=== PATIENT | male | born 1945 | race Caucasian/White ===

== ENCOUNTER 2017-09-16 13:49 | Emergency (ER) | payer OTHER ==
[~2017-09-16] VITALS: Ht 185.4 cm; Wt 95.3 kg
--- NOTE | 2017-09-16 13:55 | NUR ---
VICENTE FROM STREET WITH CC COUGH X 2 DAYS , ,AOX4 , NO ACUTE DISTRESS NOTED , DENIES ANY PAIN AND SOB AT THIS TIME , VSS, SPO2 OF 100% VIA RA , WILL CONTINUE TO MONITOR .
[2017-09-16] MEDS ORDERED: ALBUTEROL FS 2.5 MG/3 ML VIAL.NEB ONE ×2 (14:22→15:27)
[2017-09-16] MEDS ORDERED: IPRATROPIUM NEB FS 0.5 MG/2.5 ML AMPUL.NEB ONE (14:22)
[2017-09-16] MEDS ORDERED: ALBUTEROL FS 2.5 MG/3 ML VIAL.NEB NEB ONE (14:30)
[2017-09-16] MEDS ORDERED: IPRATROPIUM NEB FS 0.5 MG/2.5 ML AMPUL.NEB NEB ONE (14:30)
[2017-09-16 14:47] LABS: BASOPHILS % (AUTO) 0.3 % (0.0-2.0); HEMATOCRIT 46 % (39-51); HEMOGLOBIN 15.3 g/dL (13.5-17.5); LYMPHOCYTES # (AUTO) 1.1 /CMM (0.8-4.8); LYMPHOCYTES % (AUTO) 11.1 % (20.0-44.0); MEAN CORPUSCULAR HEMOGLOBIN 30 PG (26.0-33.0); MEAN CORPUSCULAR HGB CONC 33 g/dl (31.0-36.0); MEAN CORPUSCULAR VOLUME 89 fL (80-96); MONOCYTES # (AUTO) 0.6 /CMM (0.1-1.30); MONOCYTES % (AUTO) 5.8 % (2.0-12.0); NEUTROPHILS # (AUTO) 8.2 /CMM (1.8-8.9); NEUTROPHILS % (AUTO) 81.8 % (43.0-81.0); PLATELET COUNT (AUTO) 227 /CMM (150-450); RDW COEFFICIENT OF VARIATION 12.6 (11.5-15.0); RED BLOOD CELL COUNT(AUTO) 5.17 MIL/uL (4.5-6.0); WHITE BLOOD COUNT (AUTO) 10.1 K/uL (4.3-11.0)
[2017-09-16 14:51] LABS: CALCIUM, SERUM 9.3 mg/dL (8.5-10.1); CARBON DIOXIDE 29 mmol/L (21-32); CHLORIDE 99 mmol/L (98-107); GLUCOSE 125 mg/dL (74-106); POTASSIUM 3.9 mmol/L (3.5-5.1); SODIUM SERUM 136 mmol/L (136-145); UREA NITROGEN, BLOOD 15 mg/dL (7-18)
--- NOTE | 2017-09-16 15:00 | NUR ---
NOTIFIED DR DELGADO THAT PT IS STILL NOTED WITH WHEZING UPON AUSCULTATION , SPO2 OF 92% VIA 2LPM NC , DENIES SOB AT THIS TIME . AWARE , AWAITING FOR ORDERS
[2017-09-16 15:02] LABS: TROPONIN I < 0.017 ng/mL (0.00-0.056)
[2017-09-16 15:04] LABS: B-TYPE NATRIURETIC PEPTIDE 67 PG/ML (0-125)
[2017-09-16] MEDS ORDERED: DEXAMETHASONE SOD PHOSPHATE 10 MG/ML VIAL ONE (15:09)
--- NOTE | 2017-09-16 15:23 | NUR ---
CALLED RT FOR BREATHING TREATMENT
[2017-09-16] MEDS ORDERED: DEXAMETHASONE SOD PHOSPHATE 4 MG/ML VIAL IM ONE (15:30)
[2017-09-16] MEDS ORDERED: ALBUTEROL FS 2.5 MG/0.5 ML VIAL.NEB NEB ONE (15:30)
[2017-09-16 15:50] VITALS: BP 125/70
--- NOTE | 2017-09-16 15:53 | NUR ---
Patient discharged to home in stable condition SPO2 OF 100% VIA RA , CLEAR LUNG SOUNDS UPON AUSCULTATION , VSS . Written and verbal after care instructions given. Patient verbalizes understanding of instruction.
== END 2017-09-16 15:52 | disposition home or self-care (01) ==
LOC: ER 13:50
DX: J98.01 Acute bronchospasm (principal); J22 Unspecified acute lower respiratory infection; Z72.0 Tobacco use; R07.89 Other chest pain; I10 Essential (primary) hypertension; Z59.0 Homelessness; Z98.890 Other specified postprocedural states
CPT/HCPCS: 36415; 71045; 80048; 83880; 84484; 85025; 93005; 94640 ×4; 96372; 99285; A4606; J1100; Z7610

== ENCOUNTER 2019-03-17 12:39 | Emergency (ER) | payer OTHER ==
[~2019-03-17] VITALS: Ht 185.4 cm; Wt 97.5 kg
--- NOTE | 2019-03-17 13:54 | NUR ---
TOOK OVER PATIENT CARE PT C/O SOB "Having issues w/breathing been getting worse x1mo or so" PLACED ON MONITOR AND PULSE OX. NO ACUTE DISTRESS NOTED.
[2019-03-17] MEDS ORDERED: ALBUTEROL FS 2.5 MG/3 ML VIAL.NEB ONE (14:35)
[2019-03-17] MEDS ORDERED: predniSONE 20 MG TABLET ONE (14:53)
--- NOTE | 2019-03-17 14:55 | NUR ---
PT RECIEVING BREATHING TREATMENT
[2019-03-17] MEDS ORDERED: ALBUTEROL FS 2.5 MG/3 ML VIAL.NEB NEB ONE (15:00)
[2019-03-17] MEDS ORDERED: predniSONE 20 MG TABLET PO ONE (15:00)
[2019-03-17 15:44] VITALS: BP 161/79
--- NOTE | 2019-03-17 15:45 | NUR ---
For Discharge- Patient discharged to home in stable condition. Written and verbal after care instructions given. Patient verbalizes understanding of instruction.
== END 2019-03-17 15:45 | disposition home or self-care (01) ==
LOC: ER 12:39
DX: J44.9 Chronic obstructive pulmonary disease, unspecified (principal); I10 Essential (primary) hypertension; F17.200 Nicotine dependence, unspecified, uncomplicated; Z59.0 Homelessness; Z98.890 Other specified postprocedural states
CPT/HCPCS: 71045; 93005; 94640; 99283; J7512

== ENCOUNTER 2019-10-02 09:40 | Emergency (ER) | payer OTHER ==
[~2019-10-02] VITALS: Ht 185.4 cm; Wt 97.5 kg
[2019-10-02 09:46] VITALS: BP 129/73
[2019-10-02] MEDS ORDERED: ACETAMINOPHEN ES 500 MG TABLET ONE (10:19)
[2019-10-02] MEDS ORDERED: IBUPROFEN 600 MG TABLET PO ONE ×2 (10:19→10:30)
[2019-10-02] MEDS ORDERED: ACETAMINOPHEN ES 500 MG TABLET PO ONE (10:30)
== END 2019-10-02 11:24 | disposition home or self-care (01) ==
LOC: ER 09:49
DX: M54.42 Lumbago with sciatica, left side (principal); I10 Essential (primary) hypertension; F17.200 Nicotine dependence, unspecified, uncomplicated; Z98.890 Other specified postprocedural states; Z59.0 Homelessness
CPT/HCPCS: 72131-TC

== ENCOUNTER 2020-09-21 12:16 | Emergency (ER) | payer BC, MEDICAID ==
[~2020-09-21] VITALS: Ht 182.9 cm; Wt 95.3 kg
--- NOTE | 2020-09-21 12:25 | NUR ---
PT SELF PRESENTS TO ED. AMUBLATORY W. STEADY GAIT FOR COUGH AND SOB EVAL. PT IS NOT COVID VACCINATED. ADMITS TO SMOKING PACK /DAY. STATES "MY COUGH IS NOT GOING AWAY AND IM SHORT OF BREATH WHEN MOVING AROUND." PT DENIES CHEST PAIN. 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 WILL CONTINUE TO MONITOR.
--- NOTE | 2020-09-21 12:30 | NUR ---
DR PULLIAM AT BEDSIDE FOR EVAL.
[2020-09-21] MEDS ORDERED: predniSONE 20 MG TABLET ONE (12:42)
[2020-09-21] MEDS: predniSONE 20 MG TABLET PO ONE (12:47)
[2020-09-21] MEDS ORDERED: IPRATROPIUM NEB FS 0.5 MG/2.5 ML AMPUL.NEB ONE (12:50)
[2020-09-21] MEDS ORDERED: ALBUTEROL FS 2.5 MG/3 ML VIAL.NEB ONE (12:50)
[2020-09-21] MEDS: IPRATROPIUM NEB FS 0.5 MG/2.5 ML AMPUL.NEB NEB ONE (12:54)
--- NOTE | 2020-09-21 12:54 | NUR ---
Nita mariscal in [facility] - 09/21/20 at 1310 by ETIENNE RT AT BEDSIDE FOR EVAL.
--- NOTE | 2020-09-21 12:54 | NUR ---
RT AT BEDSIDE FOR BREATHING TREATMENT.
[2020-09-21] MEDS: ALBUTEROL FS 2.5 MG/3 ML VIAL.NEB NEB ONE (12:55)
[2020-09-21] MEDS ORDERED: ALBU18HF2 INH (13:46)
[2020-09-21] MEDS ORDERED: AMOX-430 PO (13:46)
[2020-09-21] MEDS ORDERED: PRED20TA PO (13:46)
[2020-09-21] MEDS ORDERED: DOXY100C2 PO (13:46)
--- NOTE | 2020-09-21 14:02 | NUR ---
PT REFUSING COVID SWAB. DR PULLIAM AWARE.
--- NOTE | 2020-09-21 14:07 | NUR ---
Patient discharged to home in stable condition. Written and verbal after care instructions given. Patient verbalizes understanding of instruction.
[2020-09-21 14:09] VITALS: BP 146/80
== END 2020-09-21 14:10 | disposition home or self-care (01) ==
LOC: ER 12:17
DX: J40 Bronchitis, not specified as acute or chronic (principal); Z20.828 Contact with and (suspected) exposure to other viral communicable diseases; I48.91 Unspecified atrial fibrillation; I10 Essential (primary) hypertension; Z98.890 Other specified postprocedural states; Z59.0 Homelessness
CPT/HCPCS: 71045; 93005; 94644; 99285; J7512

== ENCOUNTER 2020-10-26 16:50 | Emergency (ER) | payer BC, OTHER ==
[~2020-10-26] VITALS: Ht 185.4 cm; Wt 95.3 kg
[~2020-10-26 16:50] MED LIST: ALBU18HF2 INH; AMOX-430 PO; DOXY100C2 PO; PRED20TA PO
[2020-10-26 16:56] VITALS: BP 169/98
[2020-10-26] MEDS ORDERED: AMLO10TA4 PO (17:04)
--- NOTE | 2020-10-26 17:11 | NUR ---
Patient eloped prior to [facility] Back to previous living condition stable. Ambulatory
== END 2020-10-26 17:10 | disposition home or self-care (01) ==
LOC: ER 17:02
DX: I10 Essential (primary) hypertension (principal); F17.200 Nicotine dependence, unspecified, uncomplicated; Z59.0 Homelessness; Z91.14 Patient's other noncompliance with medication regimen; Z76.0 Encounter for issue of repeat prescription; Z98.890 Other specified postprocedural states; Z79.899 Other long term (current) drug therapy

== ENCOUNTER 2021-01-17 21:07 | Emergency (ER) | payer BC, OTHER ==
[~2021-01-17] VITALS: Ht 185.4 cm; Wt 95.3 kg
[~2021-01-17 21:07] MED LIST changes: +AMLO10TA4 PO
[2021-01-17 21:31] VITALS: BP 124/74
[2021-01-17] MEDS ORDERED: ALBUTEROL FS 2.5 MG/0.5 ML VIAL.NEB NEB ONE (23:00)
[2021-01-17] MEDS ORDERED: ALBUTEROL FS 2.5 MG/0.5 ML VIAL.NEB ONE (23:12)
--- NOTE | 2021-01-17 23:14 | NUR ---
RT AT PT'S BEDSIDE
--- NOTE | 2021-01-17 23:46 | NUR ---
Patient discharged to home in stable condition. Written and verbal after care instructions given. Patient verbalizes understanding of instruction. PT ambulatory with a steady gait. TOLERATING R/A WELL AT 99-100%
== END 2021-01-17 23:54 | disposition home or self-care (01) ==
LOC: ER 21:34
DX: J20.9 Acute bronchitis, unspecified (principal); I10 Essential (primary) hypertension; F17.200 Nicotine dependence, unspecified, uncomplicated; Z98.890 Other specified postprocedural states; Z59.00 Homelessness unspecified; Z79.899 Other long term (current) drug therapy
CPT/HCPCS: 71045-TC

== ENCOUNTER 2021-02-13 15:28 | Inpatient (IN) | payer OTHER ==
[~2021-02-13] VITALS: Ht 182.9 cm; Wt 99.8 kg
--- NOTE | 2021-02-13 16:01 | NUR ---
TO ER BED 2, [address] C/O, DIZZINESS, CHEST DISCOMFORT, SOB ON EXERTION FOR DAYS, AAOX3, BREATHING EVEN AND NON LABORED, CONNECTED TO MONITOR, AWAITING MD ORDERS
[2021-02-13] MEDS ORDERED: LEVO88TA5 PO (16:46)
[2021-02-13] MEDS ORDERED: AMLO1CAP19 PO (16:46)
[2021-02-13] MEDS ORDERED: ATOR40TA PO (16:46)
[2021-02-13 17:15] LABS: CALCIUM, SERUM 8.8 mg/dL (8.5-10.1); CARBON DIOXIDE 32 mmol/L (21-32); CHLORIDE 106 mmol/L (98-107); CREATININE 1.1 mg/dL (0.6-1.3); GLUCOSE 136 mg/dL (74-106); POTASSIUM 4.4 mmol/L (3.5-5.1); SODIUM SERUM 141 mmol/L (136-145); UREA NITROGEN, BLOOD 22 mg/dL (7-18)
[2021-02-13 17:28] LABS: BASOPHILS # (AUTO) 0.1 K/uL (0.0-0.2); BASOPHILS % (AUTO) 0.8 % (0.0-2.0); EOSINOPHILS % (AUTO) 3.2 % (0.0-6.0); HEMATOCRIT 42 % (39-51); HEMOGLOBIN 13.6 g/dL (13.5-17.5); LYMPHOCYTES # (AUTO) 1.6 K/uL (0.8-4.8); LYMPHOCYTES % (AUTO) 22.5 % (20.0-44.0); MEAN CORPUSCULAR HGB CONC 33 g/dl (31.0-36.0); MEAN CORPUSCULAR VOLUME 92 fL (80-96); MONOCYTES # (AUTO) 0.5 K/uL (0.1-1.30); MONOCYTES % (AUTO) 6.4 % (2.0-12.0); NEUTROPHILS # (AUTO) 4.9 K/uL (1.8-8.9); NEUTROPHILS % (AUTO) 67.1 % (43.0-81.0); PLATELET COUNT (AUTO) 287 K/uL (150-450); RED BLOOD CELL COUNT(AUTO) 4.54 MIL/uL (4.5-6.0); WHITE BLOOD COUNT (AUTO) 7.3 K/uL (4.3-11.0)
[2021-02-13] MEDS ORDERED: ENOXAPARIN SODIUM 100 MG/ML DISP.SYRIN SQ ONE ×2 (17:33→18:00)
--- NOTE | 2021-02-13 19:05 | NUR ---
REC'D REPORT FROM VICKIE IRWIN FOR SHAHRAM
[2021-02-13] MEDS ORDERED: hydrALAZINE HCL IV 20 MG VIAL IV PRN (21:00)
[2021-02-13] MEDS ORDERED: MORPHINE SULFATE INJ 2 MG/ML DISP.SYRIN IV PRN (21:00)
[2021-02-13] MEDS ORDERED: ONDANSETRON HCL/PF 4 MG/2 ML VIAL IVP PRN (21:00)
[2021-02-13] MEDS ORDERED: ACETAMINOPHEN 325 MG TABLET PO PRN (21:00)
[2021-02-13] MEDS ORDERED: LABETALOL 20 MG/4 ML VIAL IV PRN (21:00)
--- NOTE | 2021-02-13 21:25 | NUR ---
COVID SWAB SENT TO LAB
--- NOTE | 2021-02-13 21:25 | NUR ---
FAXED CLINICALS TO [facility] AT [phone]
[2021-02-13 21:51] LABS: THYROID STIMULATING HORMONE 5.965 uIU/mL (0.358-3.74)
--- NOTE | 2021-02-13 23:03 | NUR ---
attemped to give report, rn with pt
--- NOTE | 2021-02-13 23:18 | NUR ---
RN NOTES RECEIVED ER ADMISSION REPORT FROM VICKIE WILCOX. ALL PERTINENT ADMISSION INFO REGARDING PT NOTED. WILL WAIT FOR PT TO BE TRANSFERRED TO UNIT AND ADDRESS NEEDS ACCORDINGLY. TUTORING MANAGER MADE AWARE.
--- NOTE | 2021-02-13 23:22 | NUR ---
gave report to andrew Retana for diana. Per jimmie, room being cleaned
[2021-02-13] MEDS ORDERED: MIDODRINE HCL (5MG) 5 MG TABLET PO PRN (23:30)
--- NOTE | 2021-02-13 23:37 | NUR ---
taken to radiology
--- NOTE | 2021-02-13 23:48 | NUR ---
pt transferred via acls protocol.
[2021-02-13 23:51] LABS: ALBUMIN 3.3 g/dL (3.4-5.0); BILIRUBIN,DIRECT 0.1 mg/dL (0.0-0.2); BILIRUBIN,TOTAL 0.6 mg/dL (0.2-1.0); TOTAL PROTEIN, SERUM 6.6 g/dL (6.4-8.2)
--- NOTE | 2021-02-13 23:55 | NUR ---
RN NOTES RECEIVED PT FROM ER VIA JONNY ACCOMPANIED BY 2 ER STAFF AND TRANSFERRED TO BED VIA 2 PERSON ASSIST. PT IS A/OX4; ON 2L VIA KS . NOTED SOB UPON EXERTION. COMPREHENSIVE PHYSICAL ASSESSMENT AND PATIENT CARE DONE. CALL LIGHT WITHIN REACH, SAFETY MEASURES AND ISOLATION PRECAUTION IN PLACE, WILL CONTINUE MONITOR AND ASSESS THROUGHOUT THE SHIFT. WILL CARRY OUT MD ORDERS ACCORDINGLY. CENTRIFUGAL SCREEN TENDER MADE AWARE.
[2021-02-14] VITALS: BP 139/83
[2021-02-14 04:00] VITALS: BP 110/69
--- NOTE | 2021-02-14 04:00 | NUR ---
RN NOTES PATIENT REMAINED TO BE IN NO SIGNS OF ACUTE RESPIRATORY DISTRESS , VITAL SIGNS STABLE AT THIS TIME. AM PATIENT CARE DONE. WILL CONTINUE TO MONITOR AND REASSESS FOR ANY CHANGES THROUGHOUT THE SHIFT.
[2021-02-14] MEDS: LEVOTHYROXINE SODIUM 88 MCG TABLET PO SCH (06:13)
[2021-02-14 06:42] LABS: BASOPHILS % (AUTO) 0.8 % (0.0-2.0); EOSINOPHILS % (AUTO) 3.6 % (0.0-6.0); HEMATOCRIT 39 % (39-51); HEMOGLOBIN 12.7 g/dL (13.5-17.5); LYMPHOCYTES # (AUTO) 1.6 K/uL (0.8-4.8); LYMPHOCYTES % (AUTO) 25.5 % (20.0-44.0); MEAN CORPUSCULAR HGB CONC 33 g/dl (31.0-36.0); MEAN CORPUSCULAR VOLUME 91 fL (80-96); MONOCYTES # (AUTO) 0.4 K/uL (0.1-1.30); NEUTROPHILS # (AUTO) 3.9 K/uL (1.8-8.9); NEUTROPHILS % (AUTO) 63.1 % (43.0-81.0); PLATELET COUNT (AUTO) 262 K/uL (150-450); RED BLOOD CELL COUNT(AUTO) 4.25 MIL/uL (4.5-6.0); WHITE BLOOD COUNT (AUTO) 6.2 K/uL (4.3-11.0)
--- NOTE | 2021-02-14 06:42 | NUR ---
RN CLOSING NOTES PATIENT RESTING IN BED COMFORTABLY WITH NO DISTRESS OR DISCOMFORT. PT IS A/OX4; ON 2L OF VIA NC . TYLENOL PO GIVEN EARLIER WHEN PATIENT COMPLAINED OF 7/10 PAIN AND REASSESSED SHORTLY AFTER ADMINISTRATION. PATIENT HAD STATED THAT HE HAD NO PAIN. ALL LIGHT WITHIN REACH, SAFETY MEASURES AND ISOLATION PRECAUTION IN PLACE, WILL CONTINUE TO ENDORSE PATIENT PLAN OF CARE TO UPCOMING NURSE.
[2021-02-14 07:23] LABS: BILIRUBIN,TOTAL 0.5 mg/dL (0.2-1.0); CREATININE 0.9 mg/dL (0.6-1.3); MAGNESIUM 2.2 mg/dL (1.8-2.4); PHOSPHORUS 4.7 mg/dL (2.5-4.9); POTASSIUM 3.9 mmol/L (3.5-5.1); TOTAL PROTEIN, SERUM 6.2 g/dL (6.4-8.2)
--- NOTE | 2021-02-14 07:30 | NUR ---
RN MORNING NOTES PT RECEIVED IN BED THIS MORNING SLEEPING. PT IS ON 2L VIA NC SAT 99% TOLERATING WELL WITH NO SIGNS OF DISTRESS OR LABORED BREATHING. PT IS A/OX4. PT IS AMBULATORY WITH BRP AND ON REGULAR DIET. PT HAS R AC IV ACCESS 20G PATENT AND FLUSHING. BED IS LOCKED IN LOWEST POSITION X2 GUARD RAILS, CALL LIGHT WITHIN REACH AND ALL HOSPITAL PROTOCOLS IN PLACE. WILL CONTINUE TO MONITOR THIS SHIFT.
[2021-02-14 08:00] VITALS: BP 96/58
[2021-02-14] MEDS: ASPIRIN EC 81 MG TABLET.DR PO SCH (08:49)
[2021-02-14] MEDS: ENOXAPARIN SODIUM 100 MG/ML DISP.SYRIN SQ SCH ×2 (08:49→21:33)
[2021-02-14] MEDS: BENAZEPRIL HCL 10 MG TABLET PO SCH (08:50)
[2021-02-14] MEDS: AMLODIPINE BESYLATE 2.5 MG TABLET PO SCH (08:50)
--- NOTE | 2021-02-14 10:16 | NUR ---
RN NOTES CONSENT WILL GET CONSENT TO RETRIEVE MEDICAL RECORDS FROM [facility].
--- NOTE | 2021-02-14 10:33 | NUR ---
RN NOTES DIET DIET CHANGED FROM REGULAR TO SOFT CARDIAC DIET.
[2021-02-14 12:00] VITALS: BP 107/73
[2021-02-14 16:00] VITALS: BP 128/83
[2021-02-14] MEDS ORDERED: ENOXAPARIN SODIUM 150 MG/ML DISP.SYRIN SQ SCH (18:00)
[2021-02-14] MEDS ORDERED: ATORVASTATIN 40 MG TABLET PO SCH (18:00)
--- NOTE | 2021-02-14 18:28 | NUR ---
RN CLOSING NOTE PT CONTINUES TO REST IN BED COMFORTABLY WITH NO COMPLAINTS OF PAIN. PT IS ON 2L VIA NC SAT 97% TOLERATING WELL WITH NO SIGNS OF DISTRESS OR LABORED BREATHING. PT IS A/OX4. PT IS AMBULATORY WITH [facility] AND ON REGULAR DIET. PT HAS R AC IV ACCESS 20G PATENT AND FLUSHING. BED IS LOCKED IN LOWEST POSITION X2 GUARD RAILS, CALL LIGHT WITHIN REACH AND ALL HOSPITAL PROTOCOLS IN PLACE. ALL MEDICATIONS GIVEN AND ALL NEEDS MET. PT IS STABLE AND WILL ENDORSE TO FILM COLOR TESTER NURSE FOR SHAHRAM
--- NOTE | 2021-02-14 19:50 | NUR ---
RN NOTES RECEIVED PATIENT WHILE IN BED, SUPINE, SLEEPING WITH NO SIGNS OF DISTRESS. PATIENT'S O2 HAS BEEN TITRATED FROM 2L NC TO ROOM AIR, PATIENT O2 SAT IS NOW 94%, NO SOB NOTED. WHEN AWAKE, PT IS A/OX4. PT IS AMBULATORY WITH [facility] AND ON REGULAR DIET. PT HAS R AC IV ACCESS 20G PATENT AND FLUSHING. BED IS LOCKED IN LOWEST POSITION X2 GUARD RAILS, CALL LIGHT WITHIN REACH AND ALL HOSPITAL PROTOCOLS IN PLACE. WILL CONTINUE TO MONITOR FOR ANY CHANGES.
[2021-02-14 20:00] VITALS: BP 118/72
[2021-02-15] VITALS: BP 152/101
[2021-02-15 04:00] VITALS: BP 139/89
--- NOTE | 2021-02-15 06:46 | NUR ---
RN CLOSING NOTES PATIENT WILL BE ENDORSED TO DAY SHIFT NURSE, A/O X4, PATIENT COMPLAINS OF SHORTNESS OF BREATH AND FATIGUE WHICH IS ALLEVIATED WITH REST. PATIENT HAS BEEN REPOSITIONED AND REMAINS WITH NO FURTHER COMPLAINS. PATIENT IS ON O2 NC AT 2L. PATIENT O2 SAT IS NOW 98%, NO SOB NOTED. PT IS AMBULATORY WITH [facility] AND ON A SOFT CARDIAC DIET. PT HAS R AC IV ACCESS 20G PATENT AND FLUSHING. BED IS LOCKED IN LOWEST POSITION X2 GUARD RAILS, CALL LIGHT WITHIN REACH AND ALL HOSPITAL PROTOCOLS IN PLACE. WILL ENDORSE TO DAY SHIFT NURSE FOR SHAHRAM.
[2021-02-15 06:50] LABS: BASOPHILS # (AUTO) 0.1 K/uL (0.0-0.2); BASOPHILS % (AUTO) 0.7 % (0.0-2.0); HEMATOCRIT 39 % (39-51); LYMPHOCYTES # (AUTO) 1.5 K/uL (0.8-4.8); LYMPHOCYTES % (AUTO) 21.1 % (20.0-44.0); MEAN CORPUSCULAR HGB CONC 33 g/dl (31.0-36.0); MEAN CORPUSCULAR VOLUME 91 fL (80-96); MONOCYTES # (AUTO) 0.5 K/uL (0.1-1.30); MONOCYTES % (AUTO) 6.6 % (2.0-12.0); NEUTROPHILS # (AUTO) 4.9 K/uL (1.8-8.9); NEUTROPHILS % (AUTO) 68.6 % (43.0-81.0); PLATELET COUNT (AUTO) 239 K/uL (150-450); RED BLOOD CELL COUNT(AUTO) 4.33 MIL/uL (4.5-6.0); WHITE BLOOD COUNT (AUTO) 7.1 K/uL (4.3-11.0)
[2021-02-15 06:55] LABS: ALBUMIN 3.1 g/dL (3.4-5.0); BILIRUBIN,TOTAL 0.7 mg/dL (0.2-1.0); CALCIUM, SERUM 8.4 mg/dL (8.5-10.1); CREATININE 0.9 mg/dL (0.6-1.3); MAGNESIUM 2.3 mg/dL (1.8-2.4); PHOSPHORUS 3.9 mg/dL (2.5-4.9); POTASSIUM 3.8 mmol/L (3.5-5.1); TOTAL PROTEIN, SERUM 6.4 g/dL (6.4-8.2)
--- NOTE | 2021-02-15 07:30 | NUR ---
PT RECEIVED SITTIN UP AT BEDSIDE THIS MORNING SLEEPING. PT IS ON 2L VIA NC SAT 99% TOLERATING WELL WITH NO SIGNS OF DISTRESS OR LABORED BREATHING. PT IS A/OX4. PT IS AMBULATORY WITH [facility] AND ON REGULAR DIET. PT HAS R AC IV ACCESS 20G PATENT AND FLUSHING. BED IS LOCKED IN LOWEST POSITION X2 GUARD RAILS, CALL LIGHT WITHIN REACH AND ALL HOSPITAL PROTOCOLS IN PLACE. WILL CONTINUE TO MONITOR THIS SHIFT.
[2021-02-15] MEDS: LEVOTHYROXINE SODIUM 88 MCG TABLET PO SCH (07:43)
[2021-02-15 08:00] VITALS: BP 129/80
[2021-02-15] MEDS: AMLODIPINE BESYLATE 2.5 MG TABLET PO SCH (09:23)
[2021-02-15] MEDS: BENAZEPRIL HCL 10 MG TABLET PO SCH (09:23)
[2021-02-15] MEDS: ASPIRIN EC 81 MG TABLET.DR PO SCH (09:23)
[2021-02-15] MEDS: ENOXAPARIN SODIUM 100 MG/ML DISP.SYRIN SQ SCH (09:24)
--- NOTE | 2021-02-15 09:45 | NUR ---
RN NOTES RECEIVED CALL FROM DR. LAGOS TO PLEASE CALL CM AND ASK FOR PT TO BE TRANSFERRED FOR CABG TO EITHER [facility], OR [place].
[2021-02-15 12:00] VITALS: BP 125/73
--- NOTE | 2021-02-15 13:46 | NUR ---
"SS Consult: SS consult for homelessness. Pt. Is a 75-year-old male. Pt. demonstrates adequate insight to the reason for hospitalization. Per pt., he was brought to hospital by ambulance due to heart problems. Pt. was oriented x4, alert, and cooperative. During interview, pt. was capable of following directions, and made appropriate eye-contact. Pt.s speech was at a normal rate. SW explored pt.s Hx of mental health and substance abuse. Pt. reported no Hx of mental health, substance abuse, suicidal or homicidal. Pt. denies auditory hallucinations, visual hallucinations, paranoia, or delusions. SW explored pt.s living situation. Per pt., he has been homeless for about 20 years. Pt. reported that he does not like going to shelters nor want to. Per pt., he is getting transferred to OSH for CT surgical eval. Plan: SW provided available homeless resources and pt. denied. SW left resources by bedside. Pt. was not willing to sign homeless waiver. Per pt., he is getting transferred so he did not want to sign. Resources Provided: [place] [facility] | [facility] Address: Confidential (call for location ) Population Served: [place] # of Beds: 57 SPA 4 | [facility] Provider: [facility] Address: [address] [place] [address] # of Beds: 49 Population Served: [place] [facility] 6 | [facility] Provider: [facility] Last Address: [address] [place] [address] # of Beds: 49 Population Served: [place] [facility] Home Provider: Kerri Gonzalez [facility] Address: [address] [facility] [address] # of Beds: 20 Population Served: Women [facility] Facility Provider: [facility] Address: [address] [facility] [address] [facility] [address] # of Beds: 30 Population Served: Women SPA 8 | [facility] Provider: [facility] [place] Address: [address] [place] [id number] # of Beds: 65 Population Served: Nadeem"
--- NOTE | 2021-02-15 14:15 | NUR ---
RN NOTES [facility] CALLED [facility] AND GAVE REPORT TO VICKIE SOLIS.
--- NOTE | 2021-02-15 16:30 | NUR ---
SENIOR ENERGY TRADER NOTE PT PICKED UP BY [id number]. REPORT GIVEN TO SARA. PT IS STABLE AT THIS TIME.
== END 2021-02-15 16:39 | disposition short-term general hospital (02) | DRG 280 ==
LOC: ER 15:35 → TELE1 22:44 → TELE-TD 02-14 05:46 → TELE1 02-14 15:44
PROVIDERS: ADMIT Internal Medicine; ATTEND Registered Nurse
DX: I25.10 Atherosclerotic heart disease of native coronary artery without angina pectoris (principal); I50.21 Acute systolic (congestive) heart failure; I21.A1 Myocardial infarction type 2; K86.1 Other chronic pancreatitis; J90 Pleural effusion, not elsewhere classified; I11.0 Hypertensive heart disease with heart failure; E03.9 Hypothyroidism, unspecified; Z91.19 Patient's noncompliance with other medical treatment and regimen; Z20.822 Contact with and (suspected) exposure to COVID-19; R13.10 Dysphagia, unspecified; Z91.14 Patient's other noncompliance with medication regimen; R91.1 Solitary pulmonary nodule; R74.01 Elevation of levels of liver transaminase levels; I95.9 Hypotension, unspecified; I35.0 Nonrheumatic aortic (valve) stenosis; R94.6 Abnormal results of thyroid function studies; Z59.00 Homelessness unspecified
CPT/HCPCS: 36415; 71045-TC; 71250-TC; 80048-TC; 80053-TC; 80076-TC; 83605-TC; 83735-TC; 83880; 84100-TC; 84439-TC; 84443-TC; 84481; 84484-TC; 85025-TC; 87081-TC; 92526; 92611-TC; 93307-TC; C9803; G0378; J1650; U0003